=== PATIENT | female | born 1955 | race Caucasian/White ===

== ENCOUNTER 2023-04-27 01:38 | Observation (INO) | payer MEDICARE, SELFPAY ==
[2023-04-27] VITALS (16 sets, daily range): BP systolic 117–194; BP diastolic 71–119; PULSE 79–105; RESP 15–24; TEMP 36.3–36.8; O2SAT 90–95; BMI 27.6
--- NOTE | 2023-04-27 02:03 | CTR_ITS ---
PROCEDURE INFORMATION: Exam: CTA Head With Contrast, Arteriography Exam date and time: 04/27/2023 2:41 AM Age: 68 years old Clinical indication: Stroke-like symptoms; Dizziness/giddiness; Additional info: Dizzy TECHNIQUE: Imaging protocol: Computed tomographic angiography of the head with contrast. Exam focused on the arteries. 3D rendering (Not supervised by radiologist): MIP and/or 3D reconstructed images were created by the technologist. Radiation optimization: All CT scans at this facility use at least one of these dose optimization techniques: automated exposure control; mA and/or kV adjustment per patient size (includes targeted exams where dose is matched to clinical indication); or iterative reconstruction. Contrast material: OMNI 350; Contrast volume: 100 ml; Contrast route: INTRAVENOUS (IV); REPORTING DATA: Count of CT and Cardiac NM exams in prior 12 months: This patient has received 0 known CTs and 0 known cardiac nuclear medicine studies in the 12 months prior to the current study. COMPARISON: CT head wo con* [id number] 04/27/2023 2:37 AM RADIATION DOSE METRICS: Total DLP (mGy-cm): 238.39 FINDINGS: ANTERIOR CIRCULATION: Right internal carotid artery: Intracranial segment is patent with no significant stenosis. No aneurysm. Right middle cerebral artery: No occlusion or significant stenosis. No aneurysm. Right anterior cerebral artery: No occlusion or significant stenosis. No aneurysm. Left internal carotid artery: Intracranial segment is patent with no significant stenosis. No aneurysm. Left middle cerebral artery: No occlusion or significant stenosis. No aneurysm. Left anterior cerebral artery: No occlusion or significant stenosis. No aneurysm. POSTERIOR CIRCULATION: Right vertebral artery: No occlusion or significant stenosis. No aneurysm. Left vertebral artery: No occlusion or significant stenosis. No aneurysm. Basilar artery: No occlusion or significant stenosis. No aneurysm. Right posterior cerebral artery: No occlusion or significant stenosis. No aneurysm. Left posterior cerebral artery: No occlusion or significant stenosis. No aneurysm. Veins: Patent venous dural sinuses and tributaries. Brain: No definite mass, mass effect, or midline shift. Cerebral ventricles: No ventriculomegaly. Bones/joints: Unremarkable. No acute fracture. Soft tissues: Unremarkable. PROCEDURE INFORMATION: Exam: CTA Neck With Contrast Exam date and time: 04/27/2023 2:41 AM Age: 68 years old Clinical indication: Stroke-like symptoms; Dizziness/giddiness; Additional info: Dizzy TECHNIQUE: Imaging protocol: Computed tomographic angiography of the neck with contrast. 3D rendering (Not supervised by radiologist): MIP and/or 3D reconstructed images were created by the technologist. Radiation optimization: All CT scans at this facility use at least one of these dose optimization techniques: automated exposure control; mA and/or kV adjustment per patient size (includes targeted exams where dose is matched to clinical indication); or iterative reconstruction. Contrast material: OMNI 350; Contrast volume: 100 ml; Contrast route: INTRAVENOUS (IV); REPORTING DATA: Count of CT and Cardiac NM exams in prior 12 months: This patient has received 0 known CTs and 0 known cardiac nuclear medicine studies in the 12 months prior to the current study. COMPARISON: CT head wo con* [id number] 04/27/2023 2:37 AM RADIATION DOSE METRICS: Total DLP (mGy-cm): 408.44 FINDINGS: Right common carotid artery: No stenosis. No dissection or occlusion. Right internal carotid artery: No stenosis of the extracranial segment. No dissection or occlusion. Right external carotid artery: No occlusion or stenosis of the origin. Left common carotid artery: No stenosis. No dissection or occlusion. Left internal carotid artery: No stenosis of the extracranial segment. No dissection or occlusion. Left external carotid artery: No occlusion or stenosis of the origin. Right vertebral artery: No stenosis. No dissection or occlusion. Left vertebral artery: No stenosis. No dissection or occlusion. Pharynx: Normal fossa of Rosenmuller. Normal tonsillar pillars. Larynx: Normal epiglottis. Symmetric vocal folds. Thyroid: Homogeneous thyroid. Homogeneous thyroid. Soft tissues: Normal. No significant soft tissue swelling. Bones/joints: Minimal cervical spine degenerative change with widely patent spinal canal. Lungs: Clear lung apices. CT/CT angio headneck* [id number] IMPRESSION: No evidence of large vessel occlusion, vascular malformation, or aneurysm. No significant intracranial atherosclerosis. IMPRESSION: No evidence of hemodynamically significant stenosis involving carotid or vertebral arteries in the neck. REFERENCES: NASCET CRITERIA. The degree of stenosis in the cervical segment of the internal carotid artery is based on NASCET criteria. Normal is no stenosis. Mild is less than 50% stenosis. Moderate is 50-69% stenosis. Severe is 70% to 99% stenosis. Total occlusion is no detectable patent lumen.
--- NOTE | 2023-04-27 02:03 | CTR_ITS ---
PROCEDURE INFORMATION: Exam: CT Head Without Contrast Exam date and time: 04/27/2023 2:37 AM Age: 68 years old Clinical indication: Stroke-like symptoms; Dizziness/giddiness; Additional info: Dizzy TECHNIQUE: Imaging protocol: Computed tomography of the head without contrast. Radiation optimization: All CT scans at this facility use at least one of these dose optimization techniques: automated exposure control; mA and/or kV adjustment per patient size (includes targeted exams where dose is matched to clinical indication); or iterative reconstruction. Other technique: STROKE PROTOCOL was implemented. REPORTING DATA: Count of CT and Cardiac NM exams in prior 12 months: This patient has received 0 known CTs and 0 known cardiac nuclear medicine studies in the 12 months prior to the current study. COMPARISON: No relevant prior studies available. RADIATION DOSE METRICS: Total DLP (mGy-cm): 1060.04 FINDINGS: Brain: No hemorrhage. Unremarkable white matter. No mass effect. Preserved mcelroy-white interfaces. Cerebral ventricles: No ventriculomegaly. Paranasal sinuses: Opacified left frontal sinus. Left anterior ethmoid mucosal thickening. Mild bilateral maxillary sinus mucosal thickening. Mastoid air cells: Visualized mastoid air cells are well aerated. Bones/joints: Unremarkable. No acute fracture. Soft tissues: Unremarkable. CT/CT head wo con* [id number] IMPRESSION: 1. No evidence of acute intracranial hemorrhage, mass effect, or edema. 2. Left frontal sinus opacification. Mucosal thickening noted in the left anterior ethmoids. ASSESSMENT: ASPECTS (Bhavya Stroke Program Early CT Score) is 10.
[2023-04-27 02:19] LABS: Basophils # 0.1 10^3/uL (0.0-0.1); Basophils % 0.5 %; Eosinophils # 0.2 10^3/uL (0.0-0.8); Eosinophils % 1.5 %; Hematocrit 44.8 % (37.0-47.0); Hemoglobin 15.4 g/dL (11.5-15.3); Lymphocytes # 1.3 10^3/uL (0.8-4.8); Lymphocytes % 11.5 %; Mean Corpuscular HGB Conc 34.4 g/dL (30.0-36.0); Mean Corpuscular Hemoglobin 28.6 pg (28.0-34.0); Mean Corpuscular Volume 83.3 fl (81-99); Mean Platelet Volume 9.5 fL (7.4-10.4); Monocytes % 8.7 %; Neutrophils # 8.54 10^3/uL (1.8-7.7); Neutrophils % 77.3 %; Nucleated Red Blood Cells % 0 %; Platelet Count 295 10^3/cmm (130-400); Red Blood Count 5.38 10^6/uL (4.1-5.3); Red Cell Distribution Width 13.3 % (12.1-15.1)
--- NOTE | 2023-04-27 02:21 | ECG_ITS ---
[facility] Test Date: 2023-04-27 Pat Name: Grace Hitchcock Department: Room: Gender: Female Fluid Dynamicist: : 1955 Requested By: Katie Rivera Order Number: [id number] Princess MD: Frankie Phelps M.D. Measurements Intervals Marble Rate: 99 P: 44 WI: 161 QRS: -16 QRSD: 91 T: -16 QT: 366 QTc: 471 Interpretive Statements SINUS RHYTHM NONSPECIFIC ST & T-WAVE ABNORMALITY No previous ECG available for comparison Electronically Signed On 04-27-2023 16:03:07 CDT by Frankie Phelps M.D. [id number]
--- NOTE | 2023-04-27 02:22 | W.ED.NAVMDI ---
HPI - Nausea/Vomiting/Diarrhea General: Chief complaint: Nausea/Vomiting/Diarrhea Stated complaint: dizzy,throwing up Time Seen by Provider: 04/27/23 01:56 Source: patient Mode of arrival: ambulatory Limitations: no limitations History of Present Illness: 68-year-old female states she has had dizziness since 10 AM. States its much worse with sudden movements of her head or standing is improved with rest. She has had multiple episodes of vomiting. She denies any abdominal pain or chest pain states she had vertigo once before it was years ago. Associated nausea: Yes Associated symtoms: Reports dizziness and nausea; Denies chest pain, dysuria or headache(s) Review of Systems Const: Denies: fever(s) or chills Eyes: Denies: blurry vision or eye discomfort ENMT: Denies: throat pain or dental pain Card: Denies: chest pain Resp: Denies: dyspnea GI: Reports: nausea and vomiting; Denies: abdominal pain or diarrhea : Denies: dysuria Musc: Denies: neck pain or back pain Skin/Breast: Denies: rash Neuro: Reports: dizziness; Denies: headache(s) Physical Exam Const: COMMON NORMALS: no acute distress, patient oriented x3 and healthy appearing HENMT: COMMON NORMALS: normocephalic and atraumatic HEAD & SCALP: normocephalic and atraumatic Eye: COMMON NORMALS: Equal, round and reactive pupils present and EOMs intact bilaterally PUPIL: Yes Equal, round and reactive pupils present OTHER: Nystagmus when looking to the right Neck/C-Spine: COMMON NORMALS: full ROM and supple Chest: COMMONS NORMALS: normal inspection of the chest and normal palpation of entire chest wall Resp: COMMON NORMALS: normal respiratory effort, No retractions, No use of accessory muscles and clear to auscultation bilaterally AUSCULTATION: clear to auscultation bilaterally Cardio: COMMON NORMALS: regular rate, regular rhythm and No murmurs present (Cardio) RATE: regular rate RHYTHM: regular rhythm GI: COMMON NORMALS: Normal to inspection, nondistended, normoactive bowel sounds present, Soft to palpation, non-tender and no masses PALPATION: Yes Soft to palpation Extremity: COMMON NORMALS: normal to inspection and full ROM Neuro: COMMON NORMALS: patient oriented x3, moves all extremities and no focal motor deficits CRANIAL NERVES: Yes CN normal except as noted SPEECH: speech normal MOTOR EXAM: 5/5 motor strength present throughout Psych: COMMON NORMALS: mental status grossly normal, Normal thought process present and cooperative THOUGHT PROCESS: Normal thought process present Skin: COMMON NORMALS: no rashes or lesions noted and no wounds GENERAL SKIN EXAM: no rashes or lesions noted Course Vital Signs: Vital signs: Vital Signs Temperature 97.9 F 04/27/23 01:57 Pulse Rate 105 H 04/27/23 01:57 Respiratory Rate 18 04/27/23 01:57 Blood Pressure 194/119 04/27/23 01:57 Pulse Oximetry 93 04/27/23 01:57 Oxygen Delivery Me thod Room Air 04/27/23 01:57 MDM - Nausea/Vomiting/Diarrhea Medical Decision Making Patient presents here with vertigo CT head CT angio was normal no signs of stroke on the nose. She is continue to have severe vertigo and ataxia and with difficulty walking even after Valium and Antivert spoke to the hospitalist will admit for observation. Medical Records I reviewed the patient's medical records. Lab Data I reviewed the patient's lab results. 04/27/23 02:05 04/27/23 02:[address] 04/27/23 02:03 IMPRESSION: 1. No evidence of acute intracranial hemorrhage, mass effect, or edema. 2. Left frontal sinus opacification. Mucosal thickening noted in the left anterior ethmoids. ASSESSMENT: ASPECTS (Bhavya Stroke Program Early CT Score) is 10. Head/Neck CTA 04/27/23 02:03 IMPRESSION: No evidence of large vessel occlusion, vascular malformation, or aneurysm. No significant intracranial atherosclerosis. IMPRESSION: No evidence of hemodynamically significant stenosis involving carotid or vertebral arteries in the neck. REFERENCES: NASCET CRITERIA. The degree of stenosis in the cervical segment of the internal carotid artery is based on NASCET criteria. Normal is no stenosis. Mild is less than 50% stenosis. Moderate is 50-69% stenosis. Severe is 70% to 99% stenosis. Total occlusion is no detectable patent lumen. Laboratory Results WBC 11.0 10^3/uL (4.0-10.0) H 04/27/23 02:05 RBC 5.38 10^6/uL (4.1-5.3) H 04/27/23 02:05 Hgb 15.4 g/dL (11.5-15.3) H 04/27/23 02:05 Hct 44.8 % (37.0-47.0) 04/27/23 02:05 MCV 83.3 fl (81-99) 04/27/23 02:05 MCH 28.6 pg (28.0-34.0) 04/27/23 02:05 MCHC 34.4 g/dL (30.0-36.0) 04/27/23 02:05 RDW 13.3 % (12.1-15.1) 04/27/23 02:05 Plt Count 295 10^3/cmm (130-400) 04/27/23 02:05 MPV 9.5 fL (7.4-10.4) 04/27/23 02:05 Neut % (Auto) 77.3 % 04/27/23 02:05 Lymph % (Auto) 11.5 % 04/27/23 02:05 [place] % (Auto) 8.7 % 04/27/23 02:05 Eos % (Auto) 1.5 % 04/27/23 02:05 Baso % (Auto) 0.5 % 04/27/23 02:05 Neut # (Auto) 8.54 10^3/uL (1.8-7.7) H 04/27/23 02:05 Lymph # (Auto) 1.3 10^3/uL (0.8-4.8) 04/27/23 02:05 [place] # (Auto) 1.0 10^3/uL (0.2-0.9) H 04/27/23 02:05 Eos # (Auto) 0.2 10^3/uL (0.0-0.8) 04/27/23 02:05 Baso # (Auto) 0.1 10^3/uL (0.0-0.1) 04/27/23 02:05 Nucleated RBC % (auto) 0 % 04/27/23 02:05 Nucleated RBCs # 0.0 /100WBC 04/27/23 02:05 Sodium 140 mmol/L (136-145) 04/27/23 02:05 Potassium 3.4 mmol/L (3.5-5.1) L 04/27/23 02:05 Chloride 102 mmol/L (98-107) 04/27/23 02:05 Carbon Dioxide 24 mmol/L (22-29) 04/27/23 02:05 Anion Gap 17.4 (5-19) 04/27/23 02:05 BUN 6 mg/dL (8-23) L 04/27/23 02:05 Creatinine 0.5 mg/dL (0.5-0.9) 04/27/23 02:05 GFR Calculation 123.1 mL/min (90-130) 04/27/23 02:05 Glucose 124 mg/dL (65-115) H 04/27/23 02:05 Calculated Osmolality 289 mOsm/kg (285-295) 04/27/23 02:05 Calcium 9.6 mg/dL (8.5-10.5) 04/27/23 02:05 Total Bilirubin 2.0 mg/dL (0.15-1.2) H 04/27/23 02:05 AST 16 U/L (0-32) 04/27/23 02:05 ALT 15 U/L (0-33) 04/27/23 02:05 Alkaline Phosphatase 81 U/L (35-105) 04/27/23 02:05 Total Protein 7.2 g/dL (6.6-8.7) 04/27/23 02:05 Albumin 4.9 g/dL (3.5-5.2) 04/27/23 02:05 Globulin 2.3 g/dL (1.3-4.6) 04/27/23 02:05 Lipase 31 U/L (13-60) 04/27/23 02:05 EKG Data EKG 1: I personally reviewed and interpreted this EKG as follows: EKG interpretation date: 04/27/23 EKG interpretation time: 03:03 Interpretation: nsr hr [address] or t wave abnormalities qrs 91 qtc 422 Discharge Plan Discharge Condition: Stable Coding Level of Care Code ED Loss Prevention Associate for Chg Fish NIH stroke score NIHSS Level Of Consciousness - 1a: 0 Level Of Consciousness Questions - 1b: Both Correct Level Of Consciousness Commands - 1c: Both Correct Best Gaze - 2: Normal Visual Gardiner - 3: No Visual Loss Facial Palsy - 4: Normal Motor Arm Right - 5: No Drift Motor Arm Left - 5: No Drift Motor Leg Right - 6: No Drift Motor Leg Left - 6: No Drift Limb Ataxia - 7: Absent Sensory - 8: Normal Best Language - 9: No Aphasia Dysarthia - 10: Normal Extinction And Inattention - 11: 0 Score Total Score: 0
[2023-04-27] MEDS: ondansetron 2 mg/ML SDV 2 mL 4 MG IVP ×2 (02:23→04:55)
[2023-04-27] MEDS: sodium chloride 0.9% 1,000 ML 999 ML IV (02:24)
[2023-04-27] MEDS: labetalol 5 mg/mL SDV 20mL 10 MG IVP (02:25)
[2023-04-27] MEDS: meclizine 25 mg tablet 50 MG PO (02:27)
[2023-04-27 02:36] LABS: Alanine Aminotransferase 15 U/L (0-33); Albumin Level 4.9 g/dL (3.5-5.2); Alkaline Phosphatase 81 U/L (35-105); Anion Gap 17.4 (5-19); Aspartate Amino Transferase 16 U/L (0-32); Blood Urea Nitrogen 6 mg/dL (8-23); Calcium 9.6 mg/dL (8.5-10.5); Carbon Dioxide 24 mmol/L (22-29); Chloride 102 mmol/L (98-107); Globulin 2.3 g/dL (1.3-4.6); Glomerular Filtration Rate 123.1 mL/min (90-130); Glucose 124 mg/dL (65-115); Lipase 31 U/L (13-60); Osmolality Calculated 289 mOsm/kg (285-295); Potassium 3.4 mmol/L (3.5-5.1); Sodium 140 mmol/L (136-145); Total Protein 7.2 g/dL (6.6-8.7)
[2023-04-27] MEDS: iohexol 350 mg/mL 500 mL Btl (per mL) IV (02:45)
[2023-04-27] MEDS: diazePAM 2 mg Tablet PO (03:37)
--- NOTE | 2023-04-27 03:50 | XRR_ITS ---
PROCEDURE INFORMATION: Exam: XR Chest Exam date and time: 04/27/2023 4:01 AM Age: 68 years old Clinical indication: Other: Vertigo TECHNIQUE: Imaging protocol: Radiologic exam of the chest. Views: 1 view. COMPARISON: CT angio headneck* [id number] 04/27/2023 2:41 AM FINDINGS: Lungs: Clear, symmetrically inflated lungs. Pleural spaces: No pleural effusion. No pneumothorax. Heart/Mediastinum: Cardiac silhouette is normal in size for technique. Bones/joints: Age appropriate. XR/XR chest 1V portable [id number] IMPRESSION: No acute cardiopulmonary abnormality.
[2023-04-27] MEDS: aspirin 325 mg Tablet PO (04:02)
--- NOTE | 2023-04-27 04:37 | PM.HP ---
Providers/Chief Complaint Admitting Physician: Enoc Salgado MD Chief Complaint: dizzy,throwing up History of Present Illness Grace Hitchcock is a 68 year old female with a no known significant past medical history presents to the emergency department with severe vertigo. Patient reports onset of symptoms around 10 AM on Monday. Reports any type of movement will worsen symptoms. Symptoms will last as long as she is moving around, sometimes brief and sometimes for several minutes until she stops moving. Rest improves symptoms. Endorses associated nausea, emesis, sinus congestion, and chills. Denies focal neurological deficits, changes in sensation, slurred speech, or facial droop. Reports a similar episode about a year ago associated with an ear infection. She denies any ear pain, discharge, ringing or changes in hearing. Reports sensation of fluid in ears at times. In the ED, CT head and CTA head/neck were negative for acute findings. Imaging did reveal abnormal left-frontal and ethmoid sinuses. Pateint was treated but found to have unsteady gait and too symptomatic to safely discharge to home. Review of Systems Narrative: A complete review of systems was obtained and found to be negative except for symptoms listed in HPI. Medications/Allergies Allergies Allergy/AdvReac Type Severity Reaction Status Date / Time acetaminophen [From NyQuil] Allergy Unknown Verified 04/27/23 02:02 dextromethorphan Allergy Unknown Verified 04/27/23 02:02 [From NyQuil] doxylamine [From NyQuil] Allergy Unknown Verified 04/27/23 02:02 pseudoephedrine [From NyQuil] Allergy Unknown Verified 04/27/23 02:02 ranitidine [From Zantac] Allergy Unknown Verified 04/27/23 02:02 PFSH Acute PFSH: Medical History (Updated 04/27/23 @ 06:21 by Enoc Salgado MD) No significant family history No significant medical problems Surgical History (Updated 04/27/23 @ 06:15 by Enoc Salgado MD) No significant past surgical history Social History (Updated 04/27/23 @ 06:18 by Enoc Salgado MD) Smoking and tobacco status: never smoked Alcohol intake: never Substance/Drug Use: never Vitals/I&O/Wt Last Vital Signs Temp 97.9 F 04/27/23 01:57 Pulse 95 04/27/23 04:00 Resp 15 04/27/23 04:00 BP 144/83 04/27/23 04:00 Pulse Ox 91 04/27/23 04:00 O2 Del Method Room Air 04/27/23 04:00 04/26/23 04/26/23 04/27/23 14:59 22:59 06:59 Intake Total 1000 / 1000 Balance 1000 / 1000 Weight last 48 hrs Weight 66.224 kg Physical Exam Narrative: General: Patient is awake and alert. Head: Normocephalic. Atraumatic. EOM intact. Dry mucous membranes. Neck: No JVD. Cardiovascular: Normal S1 S2. No gallops. No murmurs. No peripheral edema. Lungs: Clear to auscultation, no use of accessory muscles, no crackles or wheezes. Skin: No jaundice. No rashes. Abdomen: Normal bowel sounds, abdomen soft and nontender. Extremities: No cyanosis or clubbing. Musculoskeletal: No swollen or erythematous joints. Neurological: Moves all 4 extremities. No myoclonus. Data 04/27/23 02:05 04/27/23 02:05 A&P Assessment and plan (1) Vertigo: Head CT, CTA head/neck negative for acute findings Received Antivert and Valium in ED with minimal response, could consider repeating Possibly BPPV, duration of symptoms longer than expected Consider therapy evaluation as symptoms improve Consider head MRI if no improvement this morning (2) Intractable nausea and vomiting: Associated with N/V with subsequent hypokalemia Antiemetics as needed IV fluids with potassium Supportive care (3) Opacification of frontal sinus: Inflammatory markers ordered Consider treatment pending above results Plan DVT ppx: Lovenox Code: Full Attestations Medical Necessity Statement*: Patient presents w/ intractable vertigo/nausea/emesis with hospitalization not expected to cross two midnights. Coding Level of Care Code Acute Code for Chg Fwd Diagnoses Vertigo R42 Intractable nausea and vomiting R11.2 Opacification of frontal sinus R93.0
[2023-04-27] MEDS: pantoprazole 40 mg SDV IVP (04:56)
[2023-04-27] MEDS: sodium chlor 0.9% + KCl 20 mEq 20 MEQ/1,000 ML BAG 65 MEQ IV ×2 (05:00→20:44)
--- NOTE | 2023-04-27 05:01 | PC.NURSE ---
Per patient, she does not any prescription medications at home, but that she takes vitamins and herbs. Per patient: I take a probiotic, C vitamin, D vitamin, one for detoxing the liver that I can't remember what it's called, Fingreek, eldeberry, vitamin E when my legs get to hurting.
[2023-04-27 07:13] LABS: Procalcitonin 0.03 ng/mL (0-0.5)
--- NOTE | 2023-04-27 11:00 | MR_ITS ---
WS: [id number] MRI HEAD WITHOUT CONTRAST TECHNIQUE: Sagittal T1, T2 axial, T2 axial FLAIR, axial and coronal T1 images, axial susceptibility w eighted imaging, axial diffusion weighted images, and coronal T2 images were obtained. CLINICAL INFORMATION: vertigo COMPARISON: CT head April 27, 2023 FINDINGS: No evidence of restricted diffusion to suggest acute ischemia. Ventricular system and basal cisterns are patent. Moderate patchy small vessel changes. Small vessel changes in the missael. Mild parenchymal volume loss. Tiny chronic lacunar infarcts in the RIGHT cerebellum and RIGHT caudate.Tiny chronic lac unar infarct RIGHT missael. Normal vascular flow voids at the skull base. No extra-axial fluid collections. No evidence of mass o r mass effect. Mild mucosal thickening in the paranasal sinuses. Opacification of the LEFT frontal si nus mucosal thickening. No hemosiderin on susceptibly weighted images. Normal optic chiasm and pituitary infundibulum. Temporal lobes and hippocampal formations are normal in appearance. MR/MR head wo con* [id number] IMPRESSION: 1. No evidence of restricted diffusion to suggest acute ischemia. 2. Moderate small vessel changes with mild parenchymal volume loss. 3. Small vessel changes in the missael. 4. A few tiny chronic lacunar infarcts in the RIGHT cerebellum. Tiny chronic l acunar infarct RIGHT caudate. Tiny chronic lacunar infarct RIGHT missael. 5. Mucosal thickening with opacification LEFT frontal sinus.
--- NOTE | 2023-04-27 11:00 | P.PN_ITS ---
Subjective Subjective: 68yo F admitted for vertigo like Sx. Seen this AM in bed. Pt states nausea has iproved on the zofran but dizziness still present. States when she is laying still she has no vertigo-like Sx. when moving to a seated/standing/walking position vertigo is present. nauseous and dizzy. No Hx of known CVA. inner ear infection 10yrs ago with similar Sx. no known BPPV in past. Denies CP, palpitations, SOB, cough, N/V/D/C, abd pain, HERNANDEZ, vision changes, loss of sensation or strength in extremities Vitals/I&O/Wt Last Vital Signs Temp 98.2 F 04/27/23 10:11 Pulse 85 04/27/23 10:11 Resp 18 04/27/23 10:11 BP 142/84 04/27/23 10:11 Pulse Ox 95 04/27/23 10:11 O2 Del Method Room Air 04/27/23 10:11 04/26/23 04/27/23 04/27/23 22:59 06:59 14:59 Intake Total 1060 / 1060 480 / 480 Balance 1060 / 1060 480 / 480 Weight last 48 hrs Weight 158 lb 12.8 oz Weight 158 lb 8 oz Weight 146 lb Physical Exam Narrative: General: AOx3, no acute distress, well developed, well nourished, appears stated age. laying in bed psych: appropriate mood and affect. good judgment and insight. No suicidal or homicidal ideation. Head: atraumatic, normocephalic, no mass/lesions Ears: clear external auditory canals, bilat TM w/o bulging/fluid/discharge. TM with visible landmarks, good light reflex. Hearing intact Eyes: conjunctiva clear w/o exudate or hemorrhage. non-icteric, EOM intact, PERRLA. no signs of nystagmus Nose: nasal mucosa pink, septum midline Oropharynx: good dentition Neck: FROM, no lymphadenopathy, Chest: atraumatic, symmetrical CVD: RRR, normal S1 and S2, no M/R/G. 2+ pulse x 4 extremities, no JVD, no carotid bruit. Lungs: clear lung sounds in all baez, no rhonchi, wheezing, rales. Abdomen: NT, ND, soft, NABS. No hepatosplenomegaly, no mass. umbilicus midline w/o herniation Spine: no visible deformities, FROM, 5/5 strength, no paraspinal ttp.non tender bony features. no discomfort with ROM Extremities: FROM and 5/5 strength in BUE and BLE. no visible joint abnormalitie s on active and passive ROM. Neuro: CNII-XII grossly intact. No atrophy, weakness, tremors or clonus.? 2+ DTR, no sensory abnormalities. dizziness when sitting upwards. pt refused toan- hallpike in bed 2/2 dizziness after sitting up Skin:? no rash, vesicles, lesions. Data 04/27/23 02:05 04/27/23 02:05 A&P Assessment and plan (1) Vertigo: Head CT, CTA head/neck negative for acute findings Present on changing of positions and with walking/standing possible BPPV but duration of Sx longer than expected MRI head w/o contrast ordered PT to eval and do toan-hallpike and eply if necessary (2) Intractable nausea and vomiting: Associated with N/V with subsequent hypokalemia Antiemetics PRN IV fluids with potassium Supportive care (3) Opacification of frontal sinus: negative inflam markers Plan Zofran PRN MRI head pending PT eval/treat pending DVT ppx: Lovenox Code: Full plan: if Sx improvement after toan-hallpike and Eply will consider discharging later today. If CVA on MRI will have to consider possible SNF or PT as pt unable to ambulate w/o Sx. Attestations Medical Necessity Statement*: pt requires 2 overnight stays due to vertigo and CVA r/o Coding Level of Care Code 84988 Diagnoses Vertigo R42 Intractable nausea and vomiting R11.2 Opacification of frontal sinus R93.0
[2023-04-27 11:32] LABS: Estmated Average Glucose 111; Hemoglobin A1C 5.5 % (4.0-6.0)
[2023-04-27 13:53] LABS: Anion Gap 16.5 (5-19); Blood Urea Nitrogen 5 mg/dL (8-23); Calcium 8.8 mg/dL (8.5-10.5); Carbon Dioxide 23 mmol/L (22-29); Chloride 106 mmol/L (98-107); Glomerular Filtration Rate 123.1 mL/min (90-130); Glucose 116 mg/dL (65-115); Osmolality Calculated 292 mOsm/kg (285-295); Potassium 3.5 mmol/L (3.5-5.1); Sodium 142 mmol/L (136-145)
[2023-04-27] MEDS: pantoprazole DR 40 mg Tablet PO (17:51)
[2023-04-28 03:35] VITALS: BP 120/73; PULSE 68; RESP 16; TEMP 36.6; O2SAT 96
[2023-04-28 04:59] LABS: Basophils % 0.7 %; Eosinophils # 0.2 10^3/uL (0.0-0.8); Eosinophils % 3.4 %; Hematocrit 40.5 % (37.0-47.0); Hemoglobin 12.9 g/dL (11.5-15.3); Lymphocytes # 1.5 10^3/uL (0.8-4.8); Lymphocytes % 25.4 %; Mean Corpuscular HGB Conc 31.9 g/dL (30.0-36.0); Mean Corpuscular Hemoglobin 28.4 pg (28.0-34.0); Mean Platelet Volume 9.7 fL (7.4-10.4); Monocytes # 0.8 10^3/uL (0.2-0.9); Monocytes % 12.6 %; Neutrophils # 3.42 10^3/uL (1.8-7.7); Neutrophils % 57.6 %; Nucleated Red Blood Cells % 0 %; Platelet Count 222 10^3/cmm (130-400); Red Blood Count 4.55 10^6/uL (4.1-5.3); Red Cell Distribution Width 13.7 % (12.1-15.1); White Blood Count 5.9 10^3/uL (4.0-10.0)
[2023-04-28 05:24] LABS: Alanine Aminotransferase 10 U/L (0-33); Albumin Level 3.7 g/dL (3.5-5.2); Alkaline Phosphatase 61 U/L (35-105); Aspartate Amino Transferase 17 U/L (0-32); Blood Urea Nitrogen 5 mg/dL (8-23); Calcium 8.4 mg/dL (8.5-10.5); Carbon Dioxide 25 mmol/L (22-29); Chloride 109 mmol/L (98-107); Globulin 1.9 g/dL (1.3-4.6); Glomerular Filtration Rate 99.7 mL/min (90-130); Glucose 103 mg/dL (65-115); Magnesium 1.9 mg/dL (1.7-2.3); Osmolality Calculated 292 mOsm/kg (285-295); Phosphorus 3.4 mg/dL (2.5-4.5); Sodium 142 mmol/L (136-145); Total Bilirubin 2.3 mg/dL (0.15-1.2); Total Protein 5.6 g/dL (6.6-8.7)
[2023-04-28 05:28] VITALS: PULSE 77
[2023-04-28 06:00] VITALS: BMI 29.3
[2023-04-28 07:13] VITALS: BP 134/81; PULSE 78; RESP 16; TEMP 36.6; O2SAT 96
[2023-04-28] MEDS: pantoprazole DR 40 mg Tablet PO (08:38)
--- NOTE | 2023-04-28 09:44 | PM.DCS ---
Discharge Providers Date of Admission: 04/27/23 03:59 Date of Discharge: April 28, 2023 Attending Provider at Admission: Enoc Salgado MD Attending Provider at Discharge: Mohsen Duque MD Primary Care Provider: NONE. will set up as outpatient Diagnoses at Discharge Discharge Diagnosis (1) BPPV (benign paroxysmal positional vertigo): Details from hospital stay: TOAN-HALLPIKE +ve will sent to OP PT Status: Acute (2) Vertigo: Details from hospital stay: improved Sx will prescribe meclazine PRN and zofran Status: Acute (3) Intractable nausea and vomiting: Details from hospital stay: improved Status: Acute (4) Opacification of frontal sinus: Status: Acute Reason for Visit Reason for Visit: dizzy,throwing up Hospital Course Hospital Course 68yo F with no significant PMHx presented to ED with intractable nausea, vomitting and vertigo like Sx. Blood work, CT, CTA head/neck where negative for CVA or acute abnormalities. MRI brain was ordered showing no acute CVA. PT consulted for BPPV eval which showed a positive [place]-Hallpike. pt did not tolerate Eply well. On day of discharge pt had improved Sx but not complete resolution of dissiness. Will send home on meclazine, zofran and sent to outpatient PT for treatment of BPPV. to follow up with myself in outpatient clinic Physical Exam Narrative: General: AOx3, no acute distress, well developed, well nourished, appears stated age. laying in bed psych: appropriate mood and affect. good judgment and insight. No suicidal or homicidal ideation. Head: atraumatic, normocephalic, no mass/lesions Ears: clear external auditory canals, bilat TM w/o bulging/fluid/discharge. TM with visible landmarks, good light reflex. Hearing intact Eyes: conjunctiva clear w/o exudate or hemorrhage. non-icteric, EOM intact, PERRLA. no signs of nystagmus CVD: RRR, normal S1 and S2, no M/R/G. 2+ pulse x 4 extremities, no JVD, no carotid bruit. Lungs: clear lung sounds in all baez, no rhonchi, wheezing, rales. Abdomen: NT, ND, soft, NABS. No hepatosplenomegaly, Spine: no visible deformities, FROM, 5/5 strength, no paraspinal ttp.non tender bony features. no discomfort with ROM Extremities: FROM and 5/5 strength in BUE and BLE. no visible joint abnormalities on active and passive ROM. Neuro: CNII-XII grossly intact. No atrophy, weakness, tremors or clonus.? 2+ DTR, no sensory abnormalities. dizziness when sitting upwards. pt refused toan-hallpike in bed 2/2 dizziness after sitting up Skin:? no rash, vesicles, lesions. Discharge Data Studies Completed and Pending Completed Studies During Hospitalization Category Date Time Status CT head wo con* [id number] Stat Cat Scan 04/27/23 02:03 Completed CTA head neck [CT angio headneck* [id number]] Stat Cat Scan 04/27/23 02:03 Completed CXRP [XR chest 1V portable [id number]] Stat Exams 04/27/23 03:50 Completed MR head wo con* [id number] Routine MRI 04/27/23 11:00 Completed Radiology Impressions Head CT 04/27/23 02:03 IMPRESSION: 1. No evidence of acute intracranial hemorrhage, mass effect, or edema. 2. Left frontal sinus opacification. Mucosal thickening noted in the left anterior ethmoids. ASSESSMENT: ASPECTS ([place] Stroke Program Early CT Score) is 10. Head/Neck CTA 04/27/23 02:03 IMPRESSION: No evidence of large vessel occlusion, vascular malformation, or aneurysm. No significant intracranial atherosclerosis. IMPRESSION: No evidence of hemodynamically significant stenosis involving carotid or vertebral arteries in the neck. REFERENCES: NASCET CRITERIA. The degree of stenosis in the cervical segment of the internal carotid artery is based on NASCET criteria. Normal is no stenosis. Mild is less than 50% stenosis. Moderate is 50-69% stenosis. Severe is 70% to 99% stenosis. Total occlusion is no detectable patent lumen. Chest X-Ray 04/27/23 03:50 IMPRESSION: No acute cardiopulmonary abnormality. Head MRI 04/27/23 11:00 IMPRESSION: 1. No evidence of restricted diffusion to suggest acute ischemia. 2. Moderate small vessel changes with mild parenchymal volume loss. 3. Small vessel changes in the missael. 4. A few tiny chronic lacunar infarcts in the RIGHT cerebellum. Tiny chronic lacunar infarct RIGHT caudate. Tiny chronic lacunar infarct RIGHT missael. 5. Mucosal thickening with opacification LEFT frontal sinus. Laboratory Results WBC 5.9 10^3/uL (4.0-10.0) 04/28/23 04:16 RBC 4.55 10^6/uL (4.1-5.3) 04/28/23 04:16 Hgb 12.9 g/dL (11.5-15.3) 04/28/23 04:16 Hct 40.5 % (37.0-47.0) 04/28/23 04:16 MCV 89.0 fl (81-99) D 04/28/23 04:16 MCH 28.4 pg (28.0-34.0) 04/28/23 04:16 MCHC 31.9 g/dL (30.0-36.0) D 04/28/23 04:16 RDW 13.7 % (12.1-15.1) 04/28/23 04:16 Plt Count 222 10^3/cmm (130-400) 04/28/23 04:16 MPV 9.7 fL (7.4-10.4) 04/28/23 04:16 Neut % (Auto) 57.6 % 04/28/23 04:16 Lymph % (Auto) 25.4 % 04/28/23 04:16 [place] % (Auto) 12.6 % 04/28/23 04:16 Eos % (Auto) 3.4 % 04/28/23 04:16 Baso % (Auto) 0.7 % 04/28/23 04:16 Neut # (Auto) 3.42 10^3/uL (1.8-7.7) 04/28/23 04:16 Lymph # (Auto) 1.5 10^3/uL (0.8-4.8) 04/28/23 04:16 [place] # (Auto) 0.8 10^3/uL (0.2-0.9) 04/28/23 04:16 Eos # (Auto) 0.2 10^3/uL (0.0-0.8) 04/28/23 04:16 Baso # (Auto) 0.0 10^3/uL (0.0-0.1) 04/28/23 04:16 Nucleated RBC % (auto) 0 % 04/28/23 04:16 Nucleated RBCs # 0.0 /100WBC 04/28/23 04:16 Sodium 142 mmol/L (136-145) 04/28/23 04:16 Potassium 4.0 mmol/L (3.5-5.1) 04/28/23 04:16 Chloride 109 mmol/L (98-107) H 04/28/23 04:16 Carbon Dioxide 25 mmol/L (22-29) 04/28/23 04:16 Anion Gap 12.0 (5-19) 04/28/23 04:16 BUN 5 mg/dL (8-23) L 04/28/23 04:16 Creatinine 0.6 mg/dL (0.5-0.9) 04/28/23 04:16 GFR Calculation 99.7 mL/min (90-130) 04/28/23 04:16 Glucose 103 mg/dL (65-115) 04/28/23 04:16 Estimat Average Glucose 111 04/27/23 02:05 Hemoglobin A1c 5.5 % (4.0-6.0) 04/27/23 02:05 Calculated Osmolality 292 mOsm/kg (285-295) 04/28/23 04:16 Calcium 8.4 mg/dL (8.5-10.5) L 04/28/23 04:16 Phosphorus 3.4 mg/dL (2.5-4.5) 04/28/23 04:16 Magnesium 1.9 mg/dL (1.7-2.3) 04/28/23 04:16 Total Bilirubin 2.3 mg/dL (0.15-1.2) H 04/28/23 04:16 AST 17 U/L (0-32) 04/28/23 04:16 ALT 10 U/L (0-33) 04/28/23 04:16 Alkaline Phosphatase 61 U/L (35-105) 04/28/23 04:16 C-Reactive Protein 3.0 mg/L (0.0-4.9) 04/27/23 02:05 Total Protein 5.6 g/dL (6.6-8.7) L 04/28/23 04:16 Albumin 3.7 g/dL (3.5-5.2) 04/28/23 04:16 Globulin 1.9 g/dL (1.3-4.6) 04/28/23 04:16 Lipase 31 U/L (13-60) 04/27/23 02:05 Procalcitonin 0.03 ng/mL (0-0.5) 04/27/23 02:05 Vitals Last Vital Signs Temp 98 F 04/28/23 07:13 Pulse 78 04/28/23 07:13 Resp 16 04/28/23 07:13 BP 134/81 04/28/23 07:13 Pulse Ox 96 04/28/23 07:13 O2 Del Method Room Air 04/28/23 07:13 Discharge Plan Discharge Condition: Stable Prescriptions: New meclizine [Dramamine (meclizine)] 25 mg tablet 12.5 mg PO DAILY PRN (Reason: vertigo) Qty: 30 0RF ondansetron HCl 4 mg Tablet 4 mg PO Q8H PRN (Reason: Nausea) Qty: 30 0RF No Action No Known Home Medications Referrals: Lucien Kline [Physical Therapist] - Mohsen Duque MD [Physician] - 05/10/23 8:30 am (PLEASE ARRIVE 15 MINUTES PRIOR TO APPOINTMENT. ) Discharge Diet: Advance as tolerated Discharge Activity: Limit activity as instructed Patient Instructions: Opioid Safety Activity Restrictions/Additional Instructions: NURSING PLEASE PLACE BELOW IN WORK EXCUSE NOTE Mrs. Grace Hitchcock ([birth year]) has been under my care at [facility] in [place]. Due to medical ailment patient is excused from work from 04/27/23 through 05/05/23. She may return to work thereafter without restrictions. Discharge Attestations Time Spent in Discharge Care*: less than 30 min Quality Metrics Clinical Quality Measures [ No reported AMI, CVA or VTE this stay] Coding Level of Care Code 49400 Diagnoses BPPV (benign paroxysmal positional vertigo) H81.10 Vertigo R42 Intractable nausea and vomiting R11.2 Opacification of frontal sinus R93.0
[2023-04-28 11:36] VITALS: BP 155/86; PULSE 84; RESP 16; TEMP 36.4; O2SAT 92
== END 2023-04-28 14:36 | disposition home or self-care (01) ==
LOC: ER 03:51 → MEDSURG 04:06
PROVIDERS: Admitting Provider Internal Medicine; Emergency Provider Emergency Medicine; Visit Provider Family Medicine
DX: H81.10 Benign paroxysmal vertigo, unspecified ear (principal); R11.2 Nausea with vomiting, unspecified; E87.6 Hypokalemia; R93.0 Abnormal findings on diagnostic imaging of skull and head, not elsewhere classified
CPT/HCPCS: 36415; 70450; 70496; 70498; 70551; 71045; 80048; 80053; 83036; 83690; 83735; 84100; 84145; 85025; 86140; 93005; 96361; 96365; 96366; 96375; 96376; 97110; 97140; 97162; 99285; C9113; G0378; J2405; J3480; J3490; J7030; J8597; Q9967

== ENCOUNTER → 2023-11-07 09:19 | Outpatient (BNVA) | payer MEDICARE, SELFPAY | PROVIDERS: PCP Family Medicine; Visit Provider Family Medicine | DX: H81.10 Benign paroxysmal vertigo, unspecified ear (principal); E78.5 Hyperlipidemia, unspecified; E11.9 Type 2 diabetes mellitus without complications; Z76.89 Persons encountering health services in other specified circumstances | CPT/HCPCS: 80053; 80061; 84439; 84443; 85025 ==

== ENCOUNTER 2023-11-12 11:41 | Inpatient (IN) | payer MEDICARE, SELFPAY ==
--- NOTE | 2023-11-12 11:44 | CTR_ITS ---
PROCEDURE INFORMATION: Exam: CT Head With Contrast Exam date and time: 11/12/2023 1:51 PM Age: 68 years old Clinical indication: Mass, lump, or localized swelling; Other: Left eye; Additional info: Left eye ocular pain and eye immobility TECHNIQUE: Imaging protocol: Computed tomography of the head with intravenous contrast. Radiation optimization: All CT scans at this facility use at least one of these dose optimization techniques: automated exposure control; mA and/or kV adjustment per patient size (includes targeted exams where dose is matched to clinical indication); or iterative reconstruction. Contrast material: OMNI 350; Contrast volume: 40 ml; Contrast route: INTRAVENOUS (IV); COMPARISON: MR head wo con* [id number] 04/27/2023 11:38 AM RADIATION DOSE METRICS: Total DLP (mGy-cm): 950.8 FINDINGS: Brain: Unremarkable white matter. No mass effect. No abnormal enhancing lesions. Cerebral ventricles: Unremarkable. No ventriculomegaly. Bones/joints: Unremarkable. No acute fracture. Paranasal sinuses: There is mild mucosal disease of the left mastoid air cells, left maxillary sinus and frothy secretions of the right sphenoid sinus. Mastoid air cells: See Paranasal sinuses finding. Soft tissues: Unremarkable. CT/CT head w con [id number] IMPRESSION: 1. No intracranial abscess. 2. Paranasal sinusitis and left pre and postseptal cellulitis.
[2023-11-12 12:49] LABS: Basophils # 0.1 10^3/uL (0.0-0.1); Basophils % 0.9 %; Eosinophils # 0.5 10^3/uL (0.0-0.8); Eosinophils % 5.4 %; Hematocrit 43.2 % (36-47); Lymphocytes # 1.8 10^3/uL (0.8-4.8); Mean Corpuscular HGB Conc 32.4 g/dL (30-55); Mean Corpuscular Hemoglobin 27.9 pg (27-33); Mean Corpuscular Volume 86.1 fl (85-98); Mean Platelet Volume 9.8 fL (7.4-10.4); Monocytes # 0.9 10^3/uL (0.2-0.9); Monocytes % 10.5 %; Nucleated Red Blood Cells % 0 %; Platelet Count 247 10^3/cmm (157-399); Red Blood Count 5.02 10^6/uL (3.85-5.65); Red Cell Distribution Width 13.4 % (12.1-15.1); White Blood Count 8.89 10^3/uL (3.29-11.43)
[2023-11-12 12:53] VITALS: BP 127/82; PULSE 86; RESP 12; TEMP 36.6; O2SAT 96; BMI 28.9
[2023-11-12 13:11] LABS: Alanine Aminotransferase 22 U/L (0-33); Albumin Level 4.3 g/dL (3.5-5.2); Alkaline Phosphatase 73 U/L (35-105); Anion Gap 14.3 (5-19); Aspartate Amino Transferase 19 U/L (0-32); Blood Urea Nitrogen 8 mg/dL (8-23); C Reactive Protein 4.5 mg/L (0.0-4.9); Calcium 9.1 mg/dL (8.5-10.5); Carbon Dioxide 27 mmol/L (22-29); Chloride 106 mmol/L (98-107); Globulin 2.5 g/dL (1.3-4.6); Glomerular Filtration Rate 99.7 mL/min (90-130); Glucose 114 mg/dL (65-115); Osmolality Calculated 297 mOsm/kg (285-295); Potassium 3.3 mmol/L (3.5-5.1); Sodium 144 mmol/L (136-145); Total Bilirubin 1.6 mg/dL (0.15-1.2); Total Protein 6.8 g/dL (6.6-8.7)
[2023-11-12 13:15] LABS: Procalcitonin 0.06 ng/mL (0-0.5)
[2023-11-12 13:27] LABS: Erythrocyte Sedimentation Rate 7 mm/hr (0-15)
--- NOTE | 2023-11-12 13:45 | CTR_ITS ---
PROCEDURE INFORMATION: Exam: CT Orbits With Contrast Exam date and time: 11/12/2023 1:51 PM Age: 68 years old Clinical indication: Mass, lump, or swelling; Other: Left eye swollen; Eye pain; Additional info: Eye pain/abscess TECHNIQUE: Imaging protocol: Computed tomography of the orbits with contrast. Radiation optimization: All CT scans at this facility use at least one of these dose optimization techniques: automated exposure control; mA and/or kV adjustment per patient size (includes targeted exams where dose is matched to clinical indication); or iterative reconstruction. Contrast material: OMNI 350; Contrast volume: 40 ml; Contrast route: INTRAVENOUS (IV); COMPARISON: CT head w con [id number] 11/12/2023 1:51 PM RADIATION DOSE METRICS: Total DLP (mGy-cm): 318.9 FINDINGS: Paranasal sinuses: There is mild mucosal disease of bilateral maxillary sinuses. There are frothy secretions in the right sphenoid sinus and left frontal sinus. Orbital cavities: Post bilateral cataract surgery. There is swelling of the left medial and inferior muscles with postseptal medial and inferior extraconal fat stranding and to a lesser extent intraconal fat stranding. Normal right orbit. Bones/joints: No acute fracture. Soft tissues: There is left cheek/lower eyelid skin thickening and subcutaneous fat stranding extending to the left upper eyelid. No collections or abscess formation. CT/CT orbit BI w con [id number] IMPRESSION: Findings consistent with left preseptal and postseptal/orbital cellulitis predominantly at the medial and inferior postseptal regions. No well-defined abscess formation.
[2023-11-12] MEDS: iohexol 350 mg/mL 500 mL Btl (per mL) IV ×2 (13:58→13:59)
[2023-11-12] MEDS: methylPREDNISolone sod succ 125 mg/2 mL INJ IVP (15:42)
[2023-11-12] MEDS: cefTRIAXone 1,000 MG in sodium chloride 0.9% (plus) 50 ML 100 MG IV (15:43)
--- NOTE | 2023-11-12 15:49 | ED_ITS ---
HPI - Eye Problem 2 General: Chief complaint: Eye Problems Stated complaint: left eye pain Time Seen by Provider: 11/12/23 11:54 History of Present Illness: 68-year-old female presents to the emerg ency department with complaints of a swollen left eye. She states she was sent here by the urgent care for additional evaluation treatment and care. Patient states that on Monday she noticed some swelling to the left eyelid that has continued to progress despite home treatment to include ice packs and my mouth Benadryl. Patient states that the eyelid both lower and upper have become more swollen and she also has noticed some swelling/bubbling in the white of her eye. She states she feels like she has blurred vision of the left eye as well. She denies known injury or trauma. She states she does have seasonal allergies. Review of Systems 2 General: Reports: 10 or more systems reviewed and unremarkable except in HPI and below Eyes: Reports: blurry vision, eye discomfort, eye discharge and other (Periorbital edema left eye) PFS ED 2 PFSH: Medical History No significant medical problems No significant family history Surgical History No significant past surgical history Family History Grandmother Cancer Paternal-unknown Father Cancer leukemia Mother Cancer blood cancer-unknown Brother Cancer merckel carcinoma Other Hyperlipidemia Hypertension Stroke Denies family history of Diabetes CAD (coronary artery disease) Clotting disorder Dementia Psychiatric illness Chronic kidney disease (CKD) Anesthesia complication Bleeding disorder Lung disease Social History Smoking and tobacco/nicotine status: never used tobacco/nicotine Alcohol intake: never Substance/Drug Use: never Lives independently: Yes Current occupational status: employed and retired Current occupation: [employer] Special torres needs: No Agree to transfusion: Yes Physical Exam 2 Narrative: EXAM NARRATIVE: Constitutional: the patient appears well nourished and of normal development. Vital signs as documented. No acute distress at present. Alert and oriented-to person, place, time and situation. Head, eyes, ears, nose, mouth, throat: Normocephalic, atraumatic. Pupils-equal, round, reactive to light. No scleral icterus. Positive left periorbital edema, left chemosis present, limited extra-ocular movements of the left eye. normal-appearing external ears. Normal appearing nasal turbinates, no drainage. No obvious oral lesions, posterior oropharynx without erythema or exudates. Neck: Supple, trachea is midline, no lymphadenopathy, no jugular venous distension, thyromegaly, or carotid bruits. Carotid upstrokes are brisk bilaterally. Lungs: clear to auscultation to all lung baez. Symmetrical rise and fall of chest, no obvious signs of increased work of breathing at present. Cardiac: Regular rate and rhythm, positive S1, S2. No murmurs, rubs or gallops that I can appreciate Abdomen: Soft, non-tender to palpation, normal active bowel sounds to all quadrants. No palpable masses, no organomegaly and abdominal bruits. Extremities: 2+ pulses in the upper extremities that are equal bilaterally, 2+ pulses in the lower extremities that are equal bilaterally. Non-edematous. Moves all extremities well, sensation to all extremities are noted. Skin: Warm, dry, intact. Course 2 Vital Signs: Vital signs: Vital Signs Temperature 97.7 F 11/13/23 11:40 Pulse Rate 89 11/13/23 11:40 Respiratory Rate 18 11/13/23 11:40 Blood Pressure 156/90 11/13/23 11:40 Pulse Oximetry 93 11/13/23 11:40 Oxygen Delivery Me thod Room Air 11/13/23 11:40 MDM - Eye Problem Medical Decision Making Physical exam completed and documented I will obtain a CBC, CMP ESR and CRP. I will obtain a CT scan of the head and orbits to evaluate for worsening infection. I will provide IV access and steroids as well as antibiotics. I have contacted Dr. Lebron Márquez ophthalmology and discussed the patient's case and he is requested admission of the patient to the hospital medicine service and he stated he would see the patient. I have contacted the hospital medicine team to request acceptance for additional evaluation and treatment and care. Medical Records I reviewed the patient's medical records. Lab Data I reviewed the patient's lab results. 11/13/23 02:20 11/13/23 02:[address] 11/12/23 11:44 IMPRESSION: 1. No intracranial abscess. 2. Paranasal sinusitis and left pre and postseptal cellulitis. Orbit CT 11/12/23 13:45 IMPRESSION: Findings consistent with left preseptal and postseptal/orbital cellulitis predominantly at the medial and inferior postseptal regions. No well-defined abscess formation. Head MRI 11/12/23 17:14 IMPRESSION: 1. Preseptal and postseptal cellulitis along the medial and lateral aspect of the left globe. 2. Increased T2 signal along the left medial rectus muscle, early phlegmon changes are suspected. Consider repeat evaluation with contrast enhanced brain MRI. Laboratory Results WBC 8.89 10^3/uL (3.29-11.43) 11/12/23 12:34 RBC 5.02 10^6/uL (3.85-5.65) 11/12/23 12:34 Hgb 14.00 g/dL (11.27-16.99) 11/12/23 12:34 Hct 43.2 % (36-47) 11/12/23 12:34 MCV 86.1 fl (85-98) 11/12/23 12:34 MCH 27.9 pg (27-33) 11/12/23 12:34 MCHC 32.4 g/dL (30-55) 11/12/23 12:34 RDW 13.4 % (12.1-15.1) 11/12/23 12:34 Plt Count 247 10^3/cmm (157-399) 11/12/23 12:34 MPV 9.8 fL (7.4-10.4) 11/12/23 12:34 Neut % (Auto) 63.0 % 11/12/23 12:34 Lymph % (Auto) 20.0 % 11/12/23 12:34 [place] % (Auto) 10.5 % 11/12/23 12:34 Eos % (Auto) 5.4 % 11/12/23 12:34 Baso % (Auto) 0.9 % 11/12/23 12:34 Neut # (Auto) 5.60 10^3/uL (1.8-7.7) 11/12/23 12:34 Lymph # (Auto) 1.8 10^3/uL (0.8-4.8) 11/12/23 12:34 [place] # (Auto) 0.9 10^3/uL (0.2-0.9) 11/12/23 12:34 Eos # (Auto) 0.5 10^3/uL (0.0-0.8) 11/12/23 12:34 Baso # (Auto) 0.1 10^3/uL (0.0-0.1) 11/12/23 12:34 Nucleated RBC % (auto) 0 % 11/12/23 12:34 Nucleated RBCs # 0.0 /100WBC 11/12/23 12:34 ESR 7 mm/hr (0-15) 11/12/23 12:34 Sodium 144 mmol/L (136-145) 11/12/23 12:34 Potassium 3.3 mmol/L (3.5-5.1) L 11/12/23 12:34 Chloride 106 mmol/L (98-107) 11/12/23 12:34 Carbon Dioxide 27 mmol/L (22-29) 11/12/23 12:34 Anion Gap 14.3 (5-19) 11/12/23 12:34 BUN 8 mg/dL (8-23) 11/12/23 12:34 Creatinine 0.6 mg/dL (0.5-0.9) 11/12/23 12:34 GFR Calculation 99.7 mL/min (90-130) 11/12/23 12:34 Glucose 114 mg/dL (65-115) 11/12/23 12:34 Estimat Average Glucose 105 11/12/23 12:34 Hemoglobin A1c 5.3 % (4.0-6.0) 11/12/23 12:34 Calculated Osmolality 297 mOsm/kg (285-295) H 11/12/23 12:34 Calcium 9.1 mg/dL (8.5-10.5) 11/12/23 12:34 Total Bilirubin 1.6 mg/dL (0.15-1.2) H 11/12/23 12:34 AST 19 U/L (0-32) 11/12/23 12:34 ALT 22 U/L (0-33) 11/12/23 12:34 Alkaline Phosphatase 73 U/L (35-105) 11/12/23 12:34 C-Reactive Protein 4.5 mg/L (0.0-4.9) 11/12/23 12:34 Total Protein 6.8 g/dL (6.6-8.7) 11/12/23 12:34 Albumin 4.3 g/dL (3.5-5.2) 11/12/23 12:34 Globulin 2.5 g/dL (1.3-4.6) 11/12/23 12:34 Procalcitonin 0.06 ng/mL (0-0.5) 11/12/23 12:34 All radiology interpretation(s) finalized by discharge Discharge Plan Discharge Patient Disposition: Admitted As Inpatient Admit Provider: Palmer Stout Clinical Impression: Cellulitis of left orbital region, Chemosis of left conjunctiva Condition: Stable Coding Level of Care Code ED 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
[2023-11-12] MEDS: diphenhydrAMINE 50 mg/mL SDV 1mL 25 MG IVP (15:55)
[2023-11-12 16:05] VITALS: BP 126/80; PULSE 82; RESP 12; O2SAT 98
[2023-11-12] MEDS: piperacillin-tazobactam 3.375 GM in sodium chloride 0.9% (plus) 50 ML IV ×2 (16:27→23:53)
[2023-11-12] MEDS: vancomycin 1,000 MG in sodium chloride 0.9% 250 ML 250 MG IV (16:28)
--- NOTE | 2023-11-12 16:44 | PM.HP ---
Providers/Chief Complaint Admitting Physician: Palmer Stout MD Primary Care Provider: Mohsen Duque MD Chief Complaint: left eye pain History of Present Illness Grace Hitchcock is a 68 year old female with no significant past medical history, who presents [facility] due to left eye swelling since Monday. She tells me that the swelling in the left eye started specifically eyelid started on Monday, and continued to progress, progressing to both eyelids, she had swelling she noticed over her left eye, she did report intermittent blurry vision, no injury, no trauma, does report painful eye movement in all directions, currently denies any blurry vision, no loss of vision, no photopsia, does report eye pain, painful movement and normal for directions Review of Systems Const: Denies: fever(s) Eyes: Reports: change in vision and blurry vision Resp: Denies: dyspnea GI: Denies: abdominal pain Musc: Denies: neck pain or back pain Neuro: Denies: headache(s), numbness in extremities, weakness in extremities, dizziness, vertigo, confusion or seizure-like activity Medications/Allergies Home Medications Medication Instructions Recorded Confirmed Last Taken Type No Known Home Medications 11/07/23 11/12/23 Unknown History Allergies Allergy/AdvReac Type Severity Reaction Status Date / Time acetaminophen [From NyQuil] Allergy Unknown Verified 11/12/23 12:53 dextromethorphan Allergy Unknown Verified 11/12/23 12:53 [From NyQuil] doxylamine [From NyQuil] Allergy Unknown Verified 11/12/23 12:53 pseudoephedrine [From NyQuil] Allergy Unknown Verified 11/12/23 12:53 ranitidine [From Zantac] Allergy Unknown Verified 11/12/23 12:53 PFSH Acute PFSH: Medical History No significant medical problems No significant family history Surgical History No significant past surgical history Family History Grandmother Cancer Paternal-unknown Father Cancer leukemia Mother Cancer blood cancer-unknown Brother Cancer merckel carcinoma Other Hyperlipidemia Hypertension Stroke Denies family history of Diabetes CAD (coronary artery disease) Clotting disorder Dementia Psychiatric illness Chronic kidney disease (CKD) Anesthesia complication Bleeding disorder Lung disease Social History Smoking and tobacco/nicotine status: never used tobacco/nicotine Alcohol intake: never Substance/Drug Use: never Lives independently: Yes Current occupational status: employed and retired Current occupation: [employer] Special torres needs: No Agree to transfusion: Yes Vitals/I&O/Wt Last Vital Signs Temp 97.8 F 11/12/23 12:53 Pulse 82 11/12/23 16:05 Resp 12 11/12/23 16:05 BP 126/80 11/12/23 16:05 Pulse Ox 98 11/12/23 16:05 O2 Del Method Room Air 11/12/23 16:05 11/12/23 11/12/23 11/12/23 06:59 14:59 22:59 Intake Total 50 / 50 Balance 50 / 50 Weight last 48 hrs Weight 69.4 kg Physical Exam Const: COMMON NORMALS: no acute distress and patient oriented x3 HENMT: COMMON NORMALS: normocephalic HEAD & SCALP: normocephalic Eye: COMMON NORMALS: Equal, round and reactive pupils present OTHER: Left eye, has saccadic movement to the left laterally, increase swelling of upper and lower eyelid, pupil equal round reactive to light, slight erythema around the sclera Neck/C-Spine: COMMON NORMALS: no JVD Resp: COMMON NORMALS: normal respiratory effort, No retractions, No use of accessory muscles and clear to auscultation bilaterally AUSCULTATION: clear to auscultation bilaterally Cardio: COMMON NORMALS: no JVD, regular rate, regular rhythm, S1 normal heart sound present and S2 normal heart sound present RATE: regular rate RHYTHM: regular rhythm HEART SOUNDS: S1 normal heart sound present and S2 normal heart sound present GI: COMMON NORMALS: Normal to inspection, nondistended, normoactive bowel sounds present, Soft to palpation, non-tender, No hepatosplenomegaly present, no masses and no bruits PALPATION: Yes Soft to palpation and Yes No hepatosplenomegaly present Extremity: COMMON NORMALS: capillary refill normal, no clubbing, cyanosis or edema, no calf tenderness and no pedal edema Neuro: COMMON NORMALS: patient oriented x3 Psych: COMMON NORMALS: mental status grossly normal Data 11/12/23 12:34 11/12/23 12:34 A&P Assessment and plan (1) Cellulitis of left orbital region: Plan CT/CT orbit BI w con [id number] IMPRESSION: Findings consistent with left preseptal and postseptal/orbital cellulitis predominantly at the medial and inferior postseptal regions. No well-defined abscess formation. CT/CT head w con [id number] IMPRESSION: 1. No intracranial abscess. 2. Paranasal sinusitis and left pre and postseptal cellulitis. Plan -Dr. Márquez consulted by ER -Spoke to Dr. Márquez, start broad-spectrum antibiotic therapy, steroids MRI brain -Continue vancomycin -Continue Zosyn -Continue steroids -MRI brain -Serial neurologic exams, -Full code -Lovenox DVT prophylaxis Attestations Medical Necessity Statement*: Patient requires hospitalization inpatient, greater than 2 midnight, for left orbital cellulitis Diagnoses Cellulitis of left orbital region H05.012
--- NOTE | 2023-11-12 16:46 | PM.CONSULT ---
Providers/Reason For Consult Consulting Physician/Specialty*: Dr. Lebron Márquez/ophthalmology Reason for Consult*: Orbital cellulitis Attending Physician: Palmer Stout MD Primary Care Provider: Mohsen Duque MD History of Present Illness History of Present Illness Grace Hitchcock is a 68 year old female who presents with two days worsening left periorbital edema and pain with EOMs. No known risk factors. Review of Systems Eyes: Reports: other (pain with EOMs, diplopia in left gaze) Medications/Allergies Home Medications Medication Instructions Recorded Confirmed Last Taken Type No Known Home Medications 11/07/23 11/12/23 Unknown History Allergies Allergy/AdvReac Type Severity Reaction Status Date / Time acetaminophen [From NyQuil] Allergy Unknown Verified 11/12/23 12:53 dextromethorphan Allergy Unknown Verified 11/12/23 12:53 [From NyQuil] doxylamine [From NyQuil] Allergy Unknown Verified 11/12/23 12:53 pseudoephedrine [From NyQuil] Allergy Unknown Verified 11/12/23 12:53 ranitidine [From Zantac] Allergy Unknown Verified 11/12/23 12:53 Current Medications Generic Name Dose Route Start Last Admin Trade Name Freq PRN Reason Stop Dose Admin Vancomycin HCl 1,000 mg/ 250 mls @ 250 mls/hr 11/12/23 16:01 11/12/23 16:28 Sodium Chloride IV 11/12/23 17:00 250 mls/hr ONCE ONE Administration Protocol PFSH Acute PFSH: Medical History No significant medical problems No significant family history Surgical History No significant past surgical history Family History Grandmother Cancer Paternal-unknown Father Cancer leukemia Mother Cancer blood cancer-unknown Brother Cancer merckel carcinoma Other Hyperlipidemia Hypertension Stroke Denies family history of Diabetes CAD (coronary artery disease) Clotting disorder Dementia Psychiatric illness Chronic kidney disease (CKD) Anesthesia complication Bleeding disorder Lung disease Social History Smoking and tobacco/nicotine status: never used tobacco/nicotine Alcohol intake: never Substance/Drug Use: never Lives independently: Yes Current occupational status: employed and retired Current occupation: [employer] Special torres needs: No Agree to transfusion: Yes Vitals/I&O/Wt Last Vital Signs Temp 97.8 F 11/12/23 12:53 Pulse 82 11/12/23 16:05 Resp 12 11/12/23 16:05 BP 126/80 11/12/23 16:05 Pulse Ox 98 11/12/23 16:05 O2 Del Method Room Air 11/12/23 16:05 11/12/23 11/12/23 11/12/23 06:59 14:59 22:59 Intake Total 50 / 50 Balance 50 / 50 Weight last 48 hrs Weight 153 lb Physical Exam Const: COMMON NORMALS: no acute distress HENMT: OTHER: no scabs or eschars on roof of mouth Eye: OTHER: +APD OS, -3mm abduction OS, slight proptosis without Connor, slight resistance to retropulsion, IOP 12. Chemosis and periorbital edema and erythem, most prominent temp upper lid Data 11/12/23 12:34 11/12/23 12:34 A&P Assessment and plan Plan Orbital cellulitis Concerning: pain with EOMs, -3mm restriction on abduction of left eye, slight proptosis, decreased red saturation and +APD Reassuring: normal visual acuity, normal intraocular pressure, no abscess on imaging, sinus does not appear to be primary cause Recommend admission with broad spectrum IV abx and steroids (1mg/kg pred, or equivalent) Please monitor extraocular movements, near visual acuity with patient's glasses, and afferent pupillary defect and alert ophthalmology with elevation of intraocular pressure (>30 mmHg). If patient improves over the next 48 hours, we can continue care outpatient. Coding Level of Care Code Acute Code for Chg Fwd
[2023-11-12 16:57] VITALS: BP 126/80; PULSE 82; RESP 12; TEMP 36.6; O2SAT 98
--- NOTE | 2023-11-12 17:14 | MRR_ITS ---
PROCEDURE INFORMATION: Exam: MR Head Without Contrast Exam date and time: 11/12/2023 6:00 PM Age: 68 years old Clinical indication: Pain; Other: Left eye/periorbital; Additional info: Orbital cellulitis TECHNIQUE: Imaging protocol: Magnetic resonance imaging of the head without contrast. COMPARISON: CT head w con [id number] 11/12/2023 1:51 PM FINDINGS: Brain: Bilateral periventricular T2 hyperintensities consistent with mild chronic microvascular white matter ischemic changes. Cerebral ventricles: Normal. No ventriculomegaly. Bones/joints: Unremarkable. Paranasal sinuses: Normal as visualized. No acute sinusitis. Mastoid air cells: Normal as visualized. No mastoid effusion. Orbital cavities: Increased inflammatory changes along the left medial rectus muscle. Increased muscle swelling and thickness of the medial rectus muscle. Soft tissues: Increased T2 signal seen along the left orbit, without significant restricted diffusion, findings likely suggestive of cellulitis. MR/MR head wo con* [id number] IMPRESSION: 1. Preseptal and postseptal cellulitis along the medial and lateral aspect of the left globe. 2. Increased T2 signal along the left medial rectus muscle, early phlegmon changes are suspected. Consider repeat evaluation with contrast enhanced brain MRI.
[2023-11-12 17:16] LABS: Estmated Average Glucose 105; Hemoglobin A1C 5.3 % (4.0-6.0)
[2023-11-12 17:28] VITALS: O2SAT 98
[2023-11-12 17:47] VITALS: BP 145/86; PULSE 87; RESP 18; TEMP 36.5; O2SAT 96
[2023-11-12 18:09] VITALS: BMI 29.5
[2023-11-12] MEDS: pantoprazole 40 mg SDV IVP (18:37)
[2023-11-12] MEDS: potassium chloride ER 20 mEq Tablet PO (18:38)
[2023-11-12] MEDS: sodium chloride 0.9% 1,000 ML 75 ML IV (18:45)
[2023-11-12 20:00] VITALS: BP 148/80; PULSE 95; RESP 18; TEMP 35.9; O2SAT 93
[2023-11-13] VITALS (10 sets, daily range): BP systolic 136–163; BP diastolic 79–93; PULSE 74–103; RESP 16–18; TEMP 36.4–36.9; O2SAT 93–95
[2023-11-13 00:23] LABS: Chol HDL Ratio 3.28 mg/dL (0.0-4.40); Cholesterol 164 mg/dL (0-200); HDL Cholesterol 50 mg/dL (60-100); LDL Cholesterol Calculated 72 mg/dL (50-129); LDL HDL Ratio 1.44 RATIO (0.00-3.22); Thyroid Stimulating Hormone 1.19 uIU/mL (0.27-4.20); Triglycerides 208 mg/dL (0-150)
[2023-11-13 03:10] LABS: Basophils % 0.2 %; Hematocrit 40.8 % (36-47); Lymphocytes % 15.7 %; Mean Corpuscular HGB Conc 32.4 g/dL (30-55); Mean Corpuscular Hemoglobin 28.4 pg (27-33); Mean Corpuscular Volume 87.7 fl (85-98); Mean Platelet Volume 10.3 fL (7.4-10.4); Monocytes # 0.1 10^3/uL (0.2-0.9); Monocytes % 0.8 %; Neutrophils # 5.32 10^3/uL (1.8-7.7); Neutrophils % 82.8 %; Nucleated Red Blood Cells % 0 %; Platelet Count 235 10^3/cmm (157-399); Red Blood Count 4.65 10^6/uL (3.85-5.65); Red Cell Distribution Width 13.3 % (12.1-15.1); White Blood Count 6.42 10^3/uL (3.29-11.43)
[2023-11-13 03:25] LABS: Alanine Aminotransferase 21 U/L (0-33); Alkaline Phosphatase 65 U/L (35-105); Aspartate Amino Transferase 17 U/L (0-32); Blood Urea Nitrogen 8 mg/dL (8-23); Calcium 8.4 mg/dL (8.5-10.5); Carbon Dioxide 23 mmol/L (22-29); Chloride 109 mmol/L (98-107); Globulin 2.8 g/dL (1.3-4.6); Glomerular Filtration Rate 99.7 mL/min (90-130); Glucose 172 mg/dL (65-115); Magnesium 2.2 mg/dL (1.7-2.3); Osmolality Calculated 298 mOsm/kg (285-295); Phosphorus 2.2 mg/dL (2.5-4.5); Sodium 143 mmol/L (136-145); Total Bilirubin 1.2 mg/dL (0.15-1.2); Total Protein 6.8 g/dL (6.6-8.7)
[2023-11-13] MEDS: methylPREDNISolone sod succ 125 mg/2 mL INJ 60 MG IVP (07:36)
[2023-11-13] MEDS: piperacillin-tazobactam 3.375 GM in sodium chloride 0.9% (plus) 50 ML IV ×2 (07:39→17:44)
[2023-11-13] MEDS: acetaminophen 325 mg Tablet 650 MG PO ×2 (07:49→18:02)
--- NOTE | 2023-11-13 08:11 | P.PN_ITS ---
Subjective 2 Subjective: Patient reports left eye pain, less double vision. Does have mild headache. No fevers noted overnight. I discussed her case with ophthalmology. Medications: Reviewed: Yes Vitals/I&O/Wt Last Vital Signs Temp 97.7 F 11/13/23 04:00 Pulse 74 11/13/23 06:00 Resp 18 11/13/23 04:00 BP 136/82 11/13/23 04:00 Pulse Ox 93 11/13/23 04:00 O2 Del Method Room Air 11/12/23 18:09 11/12/23 11/13/23 11/13/23 22:59 06:59 14:59 Intake Total 590 / 590 50 / 640 240 / 240 Balance 590 / 590 50 / 640 240 / 240 Weight last 48 hrs Weight 70.851 kg Weight 70.806 kg Weight 69.4 kg Physical Exam 2 Narrative: General exam no distress Left eye with erythema to the scleral laterally. Pupil is round and reactive. Chemosis noted. Neck is supple Cardiovascular regular rate and rhythm Lungs clear Abdomen is soft Extremities no cyanosis clubbing or edema Data 11/13/23 02:20 11/13/23 02:20 Micro: Microbiology 11/12/23 23:37 Blood Culture - Preliminary Blood SPECIMEN COLLECTED 11/12/23 23:41 Blood Culture - Preliminary Blood SPECIMEN COLLECTED A&P Assessment and plan (1) Cellulitis of left orbital region: Continue broad-spectrum antibiotics consisting of vancomycin and Zosyn Appreciate orthopedic consultation CBC, BMP tomorrow Continue IV steroids 60 mg IV every 24 hours MRI results discussed with patient and ophthalmology. Concern of pre and postseptal cellulitis. Cannot rule out early phlegmon changes left medial rectus muscle. Close follow-up of vancomycin troughs, renal function indicated as well as CBC as vancomycin is a potentially renal toxic medication. Plan Full code Lovenox for DVT prophylaxis Attestations 2 Medical Necessity Statement*: Requires continued hospitalization for IV antibiotics secondary to pre and postseptal cellulitis Diagnoses Cellulitis of left orbital region H05.012 Time Spent (min) 31
[2023-11-13] MEDS: pantoprazole DR 40 mg Tablet PO (09:53)
[2023-11-13] MEDS: vancomycin 1,000 MG in sodium chloride 0.9% 250 ML 250 MG IV (11:48)
[2023-11-14] MEDS: piperacillin-tazobactam 3.375 GM in sodium chloride 0.9% (plus) 50 ML IV ×2 (00:58→08:11)
[2023-11-14 04:00] VITALS: BP 150/82; PULSE 87; RESP 18; TEMP 36.6; O2SAT 94
[2023-11-14 05:56] LABS: Basophils % 0.3 %; Eosinophils % 0.3 %; Hematocrit 40.3 % (36-47); Lymphocytes # 2.5 10^3/uL (0.8-4.8); Lymphocytes % 21.3 %; Mean Corpuscular Hemoglobin 28.3 pg (27-33); Mean Corpuscular Volume 88.4 fl (85-98); Monocytes # 0.9 10^3/uL (0.2-0.9); Monocytes % 7.2 %; Neutrophils # 8.34 10^3/uL (1.8-7.7); Neutrophils % 70.2 %; Nucleated Red Blood Cells % 0 %; Platelet Count 246 10^3/cmm (157-399); Red Blood Count 4.56 10^6/uL (3.85-5.65); Red Cell Distribution Width 13.4 % (12.1-15.1); White Blood Count 11.88 10^3/uL (3.29-11.43)
[2023-11-14 06:00] VITALS: PULSE 79
[2023-11-14 06:23] LABS: Anion Gap 13.6 (5-19); Blood Urea Nitrogen 10 mg/dL (8-23); Calcium 8.6 mg/dL (8.5-10.5); Carbon Dioxide 24 mmol/L (22-29); Chloride 109 mmol/L (98-107); Glomerular Filtration Rate 99.7 mL/min (90-130); Glucose 105 mg/dL (65-115); Osmolality Calculated 295 mOsm/kg (285-295); Potassium 3.6 mmol/L (3.5-5.1); Sodium 143 mmol/L (136-145)
[2023-11-14] MEDS: vancomycin 1,000 MG in sodium chloride 0.9% 250 ML 250 MG IV (06:29)
[2023-11-14 08:00] VITALS: BP 145/84; PULSE 78; RESP 18; TEMP 36.6; O2SAT 95
[2023-11-14] MEDS: pantoprazole DR 40 mg Tablet PO (08:11)
[2023-11-14] MEDS: methylPREDNISolone sod succ 125 mg/2 mL INJ 60 MG IVP (08:11)
--- NOTE | 2023-11-14 08:20 | P.DS_ITS ---
Discharge Providers Date of Admission: 11/12/23 16:11 Date of Discharge: November 14, 2023 Attending Provider at Admission: Palmer Stout MD Attending Provider at Discharge: Bryan Whaley MD Primary Care Provider: Mohsen Duque MD Diagnoses at Discharge Discharge Diagnosis (1) Cellulitis of left orbital region: Status: Acute Reason for Visit Reason for Visit: left eye pain Hospital Course Hospital Course Grace is a 68-year-old white female who presented to the hospital with left eye discomfort, double vision, and was found to have pre and postseptal cellulitis. She was placed on vancomycin and Zosyn and ophthalmology consult was obtained. They evaluated the patient and recommended continuing IV antibiotics and obtaining an MRI. This demonstrated pre and postseptal cellulitis, and increased T2 signal left medial rectus muscle, possible early phlegmon. Patient had significant clinical improvement during her hospital stay, with resolution of double vision, resolution of chemosis. She never had any fevers. By Fe bruary 20 she thought she was back to normal. She had no evidence of visual acuity difficulty at that time. I discussed her case with ophthalmology again, and they recommended follow-up with her kicking machine operator, within 1 week, returning for any concerns, finishing 3 days of prednisone, and continuing antibiotic for at least 10 days from initiation. I discussed this in detail with the patient and she was able to ask questions, and agreed with the plan. Physical Exam Narrative: General exam no distress Neck is supple Cardiovascular regular rate and rhythm Lungs clear Abdomen is soft Extremities no sinus clubbing edema Left eye appears normal with no evidence of chemosis. Extraocular movements are intact without pain. There is no double vision. Acuity appears normal, but we will have nursing document this prior to discharge. Discharge Data Studies Completed and Pending Completed Studies During Hospitalization Category Date Time Status CT head w con [id number] Stat Cat Scan 11/12/23 11:[address] orbit BI w con [id number] Stat Cat Scan 11/12/23 13:45 Completed MR head wo con* [id number] Routine MRI 11/12/23 17:14 Completed Pending at discharge Category Date Time Status Blood Culture Stat Lab 11/12/23 23:37 Results Radiology Impressions Head CT 11/12/23 11:44 IMPRESSION: 1. No intracranial abscess. 2. Paranasal sinusitis and left pre and postseptal cellulitis. Orbit CT 11/12/23 13:45 IMPRESSION: Findings consistent with left preseptal and postseptal/orbital cellulitis predominantly at the medial and inferior postseptal regions. No well-defined abscess formation. Head MRI 11/12/23 17:14 IMPRESSION: 1. Preseptal and postseptal cellulitis along the medial and lateral aspect of the left globe. 2. Increased T2 signal along the left medial rectus muscle, early phlegmon changes are suspected. Consider repeat evaluation with contrast enhanced brain MRI. Laboratory Results WBC 11.88 10^3/uL (3.29-11.43) H 11/14/23 05:21 RBC 4.56 10^6/uL (3.85-5.65) 11/14/23 05:21 Hgb 12.90 g/dL (11.27-16.99) 11/14/23 05:21 Hct 40.3 % (36-47) 11/14/23 05:21 MCV 88.4 fl (85-98) 11/14/23 05:21 MCH 28.3 pg (27-33) 11/14/23 05:21 MCHC 32.0 g/dL (30-55) 11/14/23 05:21 RDW 13.4 % (12.1-15.1) 11/14/23 05:21 Plt Count 246 10^3/cmm (157-399) 11/14/23 05:21 MPV 10.0 fL (7.4-10.4) 11/14/23 05:21 Neut % (Auto) 70.2 % 11/14/23 05:21 Lymph % (Auto) 21.3 % 11/14/23 05:21 [place] % (Auto) 7.2 % 11/14/23 05:21 Eos % (Auto) 0.3 % 11/14/23 05:21 Baso % (Auto) 0.3 % 11/14/23 05:21 Neut # (Auto) 8.34 10^3/uL (1.8-7.7) H 11/14/23 05:21 Lymph # (Auto) 2.5 10^3/uL (0.8-4.8) 11/14/23 05:21 [place] # (Auto) 0.9 10^3/uL (0.2-0.9) 11/14/23 05:21 Eos # (Auto) 0.0 10^3/uL (0.0-0.8) 11/14/23 05:21 Baso # (Auto) 0.0 10^3/uL (0.0-0.1) 11/14/23 05:21 Nucleated RBC % (auto) 0 % 11/14/23 05:21 Nucleated RBCs # 0.0 /100WBC 11/14/23 05:21 ESR 7 mm/hr (0-15) 11/12/23 12:34 Sodium 143 mmol/L (136-145) 11/14/23 05:21 Potassium 3.6 mmol/L (3.5-5.1) 11/14/23 05:21 Chloride 109 mmol/L (98-107) H 11/14/23 05:21 Carbon Dioxide 24 mmol/L (22-29) 11/14/23 05:21 Anion Gap 13.6 (5-19) 11/14/23 05:21 BUN 10 mg/dL (8-23) 11/14/23 05:21 Creatinine 0.6 mg/dL (0.5-0.9) 11/14/23 05:21 GFR Calculation 99.7 mL/min (90-130) 11/14/23 05:21 Glucose 105 mg/dL (65-115) 11/14/23 05:21 Estimat Average Glucose 105 11/12/23 12:34 Hemoglobin A1c 5.3 % (4.0-6.0) 11/12/23 12:34 Calculated Osmolality 295 mOsm/kg (285-295) 11/14/23 05:21 Lactic Acid 2.0 mmol/L (0.5-2.2) 11/12/23 23:37 Calcium 8.6 mg/dL (8.5-10.5) 11/14/23 05:21 Phosphorus 2.2 mg/dL (2.5-4.5) L 11/13/23 02:20 Magnesium 2.2 mg/dL (1.7-2.3) 11/13/23 02:20 Total Bilirubin 1.2 mg/dL (0.15-1.2) 11/13/23 02:20 AST 17 U/L (0-32) 11/13/23 02:20 ALT 21 U/L (0-33) 11/13/23 02:20 Alkaline Phosphatase 65 U/L (35-105) 11/13/23 02:20 C-Reactive Protein 4.5 mg/L (0.0-4.9) 11/12/23 12:34 Total Protein 6.8 g/dL (6.6-8.7) 11/13/23 02:20 Albumin 4.0 g/dL (3.5-5.2) 11/13/23 02:20 Globulin 2.8 g/dL (1.3-4.6) 11/13/23 02:20 Triglycerides 208 mg/dL (0-150) H 11/12/23 23:37 Cholesterol 164 mg/dL (0-200) 11/12/23 23:37 LDL Cholesterol, Calc 72 mg/dL (50-129) 11/12/23 23:37 HDL Cholesterol 50 mg/dL (60-100) L 11/12/23 23:37 LDL/HDL Ratio 1.44 RATIO (0.00-3.22) 11/12/23 23:37 Cholesterol/HDL Ratio 3.28 mg/dL (0.0-4.40) 11/12/23 23:37 Procalcitonin 0.06 ng/mL (0-0.5) 11/12/23 12:34 TSH 1.19 uIU/mL (0.27-4.20) 11/12/23 23:37 Vitals Last Vital Signs Temp 97.8 F 11/14/23 08:00 Pulse 78 11/14/23 08:00 Resp 18 11/14/23 08:00 BP 145/84 11/14/23 08:00 Pulse Ox 95 11/14/23 08:00 O2 Del Method Room Air 11/14/23 08:00 Discharge Plan Discharge Patient Disposition: Home Condition: Stable Prescriptions: New amoxicillin-pot clavulanate 875-125 mg tablet 1 tab PO BID Qty: 16 0RF prednisone 20 mg tablet 40 mg PO DAILY 3 Days Qty: 6 0RF No Action No Known Home Medications Discharge Orders: Discharge Order (Routine); Ordered 11/14/23 Ordered By: Bryan Whaley Referrals: Mohsen Duque MD [Primary Care Provider] - 4-7 days Discharge Diet: Regular Discharge Activity: Increase activity as tolerated Patient Instructions: Opioid Safety Activity Restrictions/Additional Instructions: Return for any worsening Arrange follow-up with your kicking machine operator in [place], within 5 to 7 days. Discharge Attestations Time Spent in Discharge Care*: greater than 30 min Quality Metrics Clinical Quality Measures [ No reported AMI, CVA or VTE this stay] Coding Level of Care Code 53729 Total time (in minutes) for Discharge: 35 Diagnoses Cellulitis of left orbital region H05.012
--- NOTE | 2023-11-14 08:59 | PC.NURSE ---
Pt will discharge around 1200 after Zosyn is finished.
[2023-11-14 11:56] VITALS: BP 137/80; PULSE 88; RESP 18; TEMP 36.5; O2SAT 95
[2023-11-14 12:09] VITALS: BP 137/80; PULSE 88; RESP 18; TEMP 36.5; O2SAT 95
== END 2023-11-14 12:21 | disposition home or self-care (01) | DRG 122 ==
LOC: ER 16:06 → MEDSURG 16:23
PROVIDERS: Admitting Provider Family Medicine; Emergency Provider Internal Medicine; PCP Family Medicine; Visit Provider Internal Medicine
DX: H05.012 Cellulitis of left orbit (principal); H11.422 Conjunctival edema, left eye
CPT/HCPCS: 36415; 70460; 70481; 70551; 80048; 80053; 80061; 83036; 83605; 83735; 84100; 84145; 84443; 85025; 85651; 86140; 87040; 94664; 96365; 96367; 96372; 96375; 99285; C9113; J0696; J1200; J2543; J2930; J3370; J7030; J7050; Q9967

== ENCOUNTER 2024-04-11 20:52 | Emergency (ER) | payer MEDICARE, SELFPAY ==
[2024-04-11 20:56] VITALS: BP 177/10; PULSE 81; RESP 14; TEMP 36.6; O2SAT 99
[2024-04-11] MEDS: fluorescein 1 mg Strip EYE-RIGHT (22:20)
[2024-04-11] MEDS: tetracaine 0.5% Op Soln 4 mL Btl 1 DROP EYE-RIGHT (22:20)
--- NOTE | 2024-04-11 22:34 | W.ED.EYEPROB ---
HPI - Eye Problem General: Chief complaint: Eye Problems Stated complaint: Right eye pain Time Seen by Provider: 04/11/24 21:42 History of Present Illness: Patient presents to the ER with right eye irritation and swelling redness and drainage. Patient says she was outside when she took her family swimming and around 7:00 her eyes started becoming painful and irritated. Patient has no evidence of injury that she is aware of. However she does state that it feels like there is sand in her eye. Review of Systems General: Reports: 10 or more systems reviewed and unremarkable except in HPI and below PFSH ED PFSH: Medical History Preseptal cellulitis of left lower eyelid No significant medical problems No significant family history Surgical History No significant past surgical history Family History Grandmother Cancer Paternal-unknown Father Cancer leukemia Mother Cancer blood cancer-unknown Brother Cancer merckel carcinoma Other Hyperlipidemia Hypertension Stroke Denies family history of Diabetes CAD (coronary artery disease) Clotting disorder Dementia Psychiatric illness Chronic kidney disease (CKD) Anesthesia complication Bleeding disorder Lung disease Social History Smoking and tobacco/nicotine status: never used tobacco/nicotine Alcohol intake: never Substance/Drug Use: never Lives independently: Yes Current occupational status: employed and retired Current occupation: [employer] Special torres needs: No Agree to transfusion: Yes Physical Exam Const: COMMON NORMALS: no acute distress, average body habitus, patient oriented x3, no limitations, healthy appearing, alert and well nourished HENMT: COMMON NORMALS: normocephalic, atraumatic, hearing grossly normal bilaterally, external ears normal, Normal external nose present and moist oral mucous membranes HEAD & SCALP: normocephalic and atraumatic NOSE: Normal external nose present EXTERNAL EAR: Yes external ears normal Eye: COMMON NORMALS: Equal, round and reactive pupils present, EOMs intact bilaterally, conjunctivae normal, no scleral icterus and normal visual baez by confrontation EYELID: eyelid abnormality (Swollen and erythematous) CONJUNCTIVA: Yes conjunctivae normal SCLERA: sclerae normal CORNEA: Yes corneas normal and fluorescein used PUPIL: Yes Equal, round and reactive pupils present Neck/C-Spine: COMMON NORMALS: full ROM, no lymphadenopathy, supple, no meningeal signs, no JVD and Thyroid normal THYROID: Thyroid normal Chest: COMMONS NORMALS: normal inspection of the chest and normal palpation of entire chest wall Resp: COMMON NORMALS: normal respiratory effort, No retractions, No use of accessory muscles and clear to auscultation bilaterally AUSCULTATION: clear to auscultation bilaterally Cardio: COMMON NORMALS: no JVD, regular rate, regular rhythm, S1 normal heart sound present, S2 normal heart sound present, No gallops present (Cardio), No clicks present (Cardio), No murmurs present (Cardio) and No rub (Cardio) RATE: regular rate RHYTHM: regular rhythm HEART SOUNDS: S1 normal heart sound present and S2 normal heart sound present Neuro: COMMON NORMALS: patient oriented x3 SENSORIUM/ORIENTATION: Yes alert MENINGEAL SIGNS: Yes no meningeal signs Course Vital Signs: Vital signs: Vital Signs Temperature 97.9 F 04/11/24 20:56 Pulse Rate 81 04/11/24 20:56 Respiratory Rate 14 04/11/24 20:56 Blood Pressure 177/10 04/11/24 20:56 Pulse Oximetry 99 04/11/24 20:56 Oxygen Delivery Me thod Room Air 04/11/24 20:56 MDM - Eye Problem Medical Decision Making I was anesthetized with tetracaine, fluorescein dye was instilled, under direct visualization under black light there was no fluorescein uptake. Patient's eyelids are irritated and swollen. Patient be placed on antibiotics and instructed to follow-up with her title vehicle service attendant and/or PCP within next 7 days. Medical Records I reviewed the patient's medical records. Lab Data I reviewed the patient's lab results. No radiology studies performed this visit Discharge Plan Discharge Patient Disposition: Home Clinical Impression: Periorbital cellulitis Qualifiers: Laterality: right Qualified Code(s): L03.213 - Periorbital cellulitis Condition: Stable Prescriptions: New amoxicillin 500 mg capsule 500 mg PO Q8H Qty: 30 0RF No Action amoxicillin-pot clavulanate 875-125 mg tablet 1 tab PO BID Qty: 16 0RF Discharge Orders: Discharge ED (Routine); Ordered 04/11/24 Ordered By: Higinio Tate Referrals: Mohsen Duque MD [Primary Care Provider] - 1 week Patient Instructions: Periorbital Cellulitis (ED) Activity Restrictions/Additional Instructions: Please take all your antibiotics as directed. Please follow-up with your title vehicle service attendant and/or family practice doctor within next 7 days for further evaluation and treatment as needed. Coding Level of Care Code ED Supervisor [place] for Maral Whitten
[2024-04-11] MEDS: amoxicillin 500 mg Capsule PO (22:47)
== END 2024-04-11 22:45 | disposition home or self-care (01) ==
PROVIDERS: Emergency Provider Emergency Medicine; PCP Family Medicine
DX: L03.213 Periorbital cellulitis (principal)
CPT/HCPCS: 99283